=== PATIENT | male | born 1990 | race Caucasian/White ===

== ENCOUNTER 2024-04-23 20:18 | Emergency (ER) | payer BC ==
[~2024-04-23] VITALS: Ht 180.3 cm; Wt 102.1 kg
[2024-04-23] MEDS ORDERED: Bacitracin Zinc 14 GM TUBE T ONE (20:45)
[2024-04-23] MEDS ORDERED: Lidocaine Hydrochloride 2% 10 ML AMP SC ONE (20:45)
[2024-04-23] MEDS ORDERED: Tdap Vaccine 0.5 ML SYR (Adult Vaccine) IM ONE (20:45)
[2024-04-23] MEDS ORDERED: CEPHALEXIN500 M1 PO (21:31)
[2024-04-23] MEDS ORDERED: CEPHALEXIN 500 MG CAP PO ONE (21:35)
== END 2024-04-23 21:50 | disposition home or self-care (01) ==
LOC: ED 20:18
DX: S41.111A Laceration without foreign body of right upper arm, initial encounter (principal); W26.8XXA Contact with other sharp object(s), not elsewhere classified, initial encounter; Y93.89 Activity, other specified; Y92.89 Other specified places as the place of occurrence of the external cause; Y99.8 Other external cause status